=== PATIENT | male | born 1940 | race Two or more races ===

== ENCOUNTER 2017-10-02 12:59 | Outpatient (CLI) | payer MEDICARE ==
[2017-10-02] MEDS ORDERED: ASPIR 8181 MG ORAL (13:46)
--- NOTE | 2017-10-02 13:49 | GI Initial Consult Note ---
Edith Arguello N.P. 10/02/17 1349: History of Present Illness General Date patient seen: Oct 02, 2017 Time patient seen: 13:43 Referring physician: PUMA Reason for Consultation: MUCOSECTOMY Present Illness HPI 77 year old male referred by Dr. Crouch for mucosal resection. Patient recently had colonoscopy on 09/14/17 where a 3-4 cm sessile polyp was found. Biopsy reports did not show any dysplasia or metaplasia. He presents today with no general GI complaints. Denies any past medical history. Denies any unintentional weight loss or changes in dietary habits. No signs of abuse or neglect. Patient is not fall risk. Home Meds Reported Medications Aspirin* (ASPIR 81*) 81 Mg Tablet., 81 MG ORAL DAILY, TAB 10/02/17 Med list reviewed/reconciled: Yes Allergies: Coded Allergies: No Known Allergies (Unverified , 10/02/17) Patient History History Provided By: Patient PMH Narrative Denies any past medical history. Denies any past surgical history. Pertinent Family History: none Social History Narrative coffee daily Review of Systems All Other Systems: negative except mentioned in HPI Physical Exam T 156/83 T 97.6 P 60 98 RA Sp02 EP Interpretation: reviewed, normal General Appearance: well appearing, no apparent distress, alert Head: normocephalic EENT: PERRL/EOMI, normal ENT inspection Neck: supple Respiratory: normal breath sounds, no respiratory distress Cardiovascular: normal rate Gastrointestinal: normal inspection, non tender, soft, normal bowel sounds, non -distended Rectal: deferred Genitourinary: deferred Musculoskeletal: normal inspection, back normal Neurologic: normal inspection, alert, oriented x3, responsive Psychiatric: normal inspection, judgement/insight normal, memory normal Skin: normal inspection, normal color, no rash, warm/dry, palpation normal, well hydrated Lymphatic: normal inspection, no adenopathy GI: Plan Problems: (1) HTN (hypertension) (2) Colonoscopy planned Plan Colonoscopy for mucosectomy scheduled on 10/09/17. - CLD & (Nulytely/Suprep/Movi-Prep) prep instructions given and acknowledged by patient. - NPO @ NE day prior procedure explained. refer to PCP to management HTN Seen with Dr. Mane. Thank you for this patient referral. FRAN MANE 10/03/17 1139: History of Present Illness Present Illness Home Meds Reported Medications Aspirin* (ASPIR 81*) 81 Mg Tablet., 81 MG ORAL DAILY, TAB 10/02/17 Allergies: Coded Allergies: No Known Allergies (Unverified , 10/02/17) GI: Plan Plan The patient was seen and examined at bedside and all new and available data was reviewed in the patients chart. I agree with the above findings, impression and plan. (Patient seen earlier today. Signature stamp does not reflect patient encounter time.). - MD Saundra [facility]Little [facility] Kevon Sol Oct 02, 2017 13:49 FRAN MANE Oct 03, 2017 11:39
[2017-10-02 14:20] VITALS: BP 156/83
== END 2017-10-02 13:50 | disposition home or self-care (01) ==
LOC: PAN 12:59
DX: I10 Essential (primary) hypertension (principal); Z86.010 Personal history of colon polyps; Z79.82 Long term (current) use of aspirin
CPT/HCPCS: 99201

== ENCOUNTER 2017-10-09 07:48 | Day surgery (SDC) | payer MEDICARE ==
[2017-10-09] VITALS (10 sets, daily range): BP systolic 137–178; BP diastolic 70–80
[~2017-10-09] VITALS: Ht 175.3 cm; Wt 72.6 kg
[~2017-10-09 07:48] MED LIST: ASPIR 8181 MG ORAL
[2017-10-09] MEDS ORDERED: VITAMIN C500 M1 ORAL (08:25)
[2017-10-09] MEDS ORDERED: VITAMIN E400 UNI6 PO (08:25)
--- NOTE | 2017-10-09 09:10 | Anethesia Preoperative Eval ---
Anesthesia Pre-op PMH/ROS General Date of Evaluation: Oct 09, 2017 Time of Evaluation: 09:08 Anesthesiologist: bethany ASA Score: ASA 3 Mallampati Score Class I : Soft palate, uvula, fauces, pillars visible Class II: Soft palate, uvula, fauces visible Class III: Soft palate, base of uvula visible Class IV: Only hard plate visible Mallampati Classification: Class II Surgeon: dianelys Diagnosis: colon polyps Surgical Procedure: colonoscopy Social History: smoking - nonsmoker Family History: no anesthesia problems Allergies: Coded Allergies: No Known Allergies (Unverified , 10/02/17) Medications: see eMAR Past Medical History Cardiovascular: Reports: HTN HEENT: Reports: cataract (L), cataract (R) Musculoskeletal/Integumentary: Reports: other - back pain Anesthesia Pre-op Phys. Exam Physician Exam Last Vital Signs Date Time Temp Pulse Resp B/P (MAP) Pulse Ox O2 Delivery O2 Flow Rate FiO2 10/09/17 08:26 97.7 61 20 153/75 98 Room Air Constitutional: NAD Neurologic: CN 2-12 intact Cardiovascular: RRR Respiratory: CTA Gastrointestinal: S/NT/ND Airway Exam Mallampati Score: Class II MO: full Neck: supple TMD: 2fb ROM: limited Anesthesia Pre-op A/P Studies Pre-op Studies: EKG - nsstwa, nsr Risk Assessment & Plan Assessment: asa3 Plan: mac Status Change Before Surgery: No Pre-Antibiotics Drug: MARCIO Tran Oct 09, 2017 09:10
[2017-10-09] MEDS ORDERED: Lidocaine 1% MPF 10mg/ml 5ml ONE (09:30)
[2017-10-09] MEDS ORDERED: Propofol 200mg/20ml IV ONE (09:30)
--- NOTE | 2017-10-09 09:38 | Pre-Procedure Note/Attestation ---
Pre-Procedure Note/Attestation Complete Prior to Procedure Planned Procedure: not applicable Procedure Narrative: colonoscopy Indications for Procedure Pre-Operative Diagnosis: colon polyps Attestation I attest that I discussed the nature of the procedure; its benefits; risks and complications; and alternatives (and the risks and benefits of such alternatives ), prior to the procedure, with the patient (or the patient's legal retail sales representative). I attest that, if there was a reasonable possibility of needing a blood transfusion, the patient (or the patient's legal retail sales representative) was given the [facility] standardized written summary, pursuant to the [place] Blood Safety Act ([place] Health and Safety Code # 1645, as amended). I attest that I re-evaluated the patient just prior to the surgery and that there has been no change in the patient's H&P, except as documented below: FRAN MNAE Oct 09, 2017 09:38
--- NOTE | 2017-10-09 09:39 | Short Stay Surgery H&P ---
History of Present Illness History of Present Illness Chief Complaint see recent consult HPI Tae Salamanca is a 77 year old male who was admitted on for Colon Polyps Patient History Allergies: Coded Allergies: No Known Allergies (Unverified , 10/02/17) PAST MEDICAL HISTORY: Past Surgeries: Social History: Medication History Scheduled Ascorbic Acid* (Vitamin C*), 1,000 MG ORAL DAILY, (Reported) Aspirin* (Aspir 81*), 81 MG ORAL DAILY, (Reported) Vitamin E (Vitamin E), 400 UNIT PO DA, (Reported) Physical Exam Vital Signs Last Vital Signs Date Time Temp Pulse Resp B/P (MAP) Pulse Ox O2 Delivery O2 Flow Rate FiO2 10/09/17 08:26 97.7 61 20 153/75 98 Room Air Plan Attestation Are the patient's medical conditions optimized for surgery? FRAN MANE Oct 09, 2017 09:39
--- NOTE | 2017-10-09 10:09 | Endoscopy Procedure Note ---
Endoscopy Procedure Note Indication for Procedure: colon polyp Procedures Performed: colonoscopy Operative Findings/Diagnosis: same Specimen: yes Pt Tolerated Procedure Well: Yes Estimated Blood Loss: none Anesthesiologist: yan Anesthesia: MAC Implant(s) used?: No 50 yrs or older w/o bx or poly: No 10yrs. F/U not recommended: Yes If not recommended, why?: Above average risk 10 yrs. F/U needed: Yes 18 years or older w/prev. colo: Yes Med reason:<3 yrs.: Piecemeal removal-Adenoma FRAN MANE Oct 09, 2017 10:09
[2017-10-09] MEDS ORDERED: fentaNYL 100 mcg/2 mL IV PRN (10:15)
[2017-10-09] MEDS ORDERED: Midazolam 2mg/2ml Inj IVP PRN (10:15)
[2017-10-09] MEDS ORDERED: Atropine Inj 1mg/10ml Syr IV PRN (10:15)
[2017-10-09] MEDS ORDERED: DiphenhydrAMINE 50mg/ml Inj IVP PRN (10:15)
--- NOTE | 2017-10-09 10:47 | Immediate Post-Op Evaluation ---
Immediate Post-Op Evalulation Immediate Post-Op Evalulation Procedure: colonoscopy Date of Evaluation: Oct 09, 2017 Time of Evaluation: 10:25 IV Fluids: 400ml 0.9ns Blood Products: none Estimated Blood Loss: negligible Blood Pressure Systolic: 139 Blood Pressure Diastolic: 80 Pulse Rate: 49 Respiratory Rate: 18 O2 Sat by Pulse Oximetry: 99 Temperature (Fahrenheit): 97.3 Pain Score (1-10): 0 Nausea: No Vomiting: No Complications none Patient Status: awake, reacts, patent Hydration Status: adequate Drug: MARCIO Tran Oct 09, 2017 10:47
--- NOTE | 2017-10-09 10:52 | 48 Hour Post Anesthesia Eval ---
Post Anesthesia Evaluation Procedure: colonoscopy Date of Evaluation: Oct 09, 2017 Time of Evaluation: 10:30 Blood Pressure Systolic: 140 0: 70 Pulse Rate: 58 Respiratory Rate: 18 Temperature (Fahrenheit): 97.3 O2 Sat by Pulse Oximetry: 100 Airway: patent Nausea: No Vomiting: No Pain Intensity: 0 Hydration Status: adequate Cardiopulmonary Status: stable Mental Status/LOC: patient returned to baseline Post-Anesthesia Complications: none Follow-up care needed: N/A MARCIO FOFANA Oct 09, 2017 10:52
--- NOTE | 2017-10-09 15:45 | Procedure Note ---
DATE OF PROCEDURE: 10/09/2017 SURGEON: Go Arceo M.D. PROCEDURE: Colonoscopy with snare polypectomy. ANESTHESIOLOGIST: Bekah Brush M.D. INSTRUMENT: Olympus adult flexible colonoscope. INDICATION: History of colonic polyp, was referred by another gastrointestinal doctor given the polyp was large. REASON FOR PROCEDURE: The procedure, risks, benefits, and possible consequences, including hemorrhage, aspiration, perforation and infection, and alternative treatments, were explained to the patient/legal guardian by Dr. Go Arceo and the patient/legal guardian understood and accepted these risks. PROCEDURE: After informed consent was obtained and the patient was adequately sedated, first rectal exam was performed, which was positive for internal hemorrhoids. Then, the scope was advanced from the rectum into the cecum, documented by appendiceal orifice, ileocecal valve, and upper quadrant palpation. Quality of prep was very good. The patient has a sessile polyp, it roughly measured about 1.3 cm next to the ileocecal valve, which was removed with the snare polypectomy technique. Post polypectomy, there was minimum bleeding. We used two clips to stop the bleeding, which was successful. The rest of the exam was within normal limits. Retroflexion of rectum showed evidence of large internal hemorrhoids. SUMMARY FINDINGS: 1. One polyp about 1.3 cm sessile in the proximal ascending colon. 2. Ileocecal valve was removed with the snare polypectomy technique and two clips were placed after the polyp was removed. 3. Internal hemorrhoids. RECOMMENDATIONS: Follow biopsy results and treat accordingly. The patient to follow up with Dr. Ocampo, his own primary gastrointestinal doctor for future colonoscopy. I want to thank Dr. Ocampo for this kind referral. Go Arceo M.D. DR: MUKUL JOB#: [id number] CC: Dr. Ocampo
--- NOTE | 2017-10-09 18:28 | Cardiology Report ---
APPROVED REPORT EKG Measurement Heart [id number] Normal sinus rhythm Nonspecific ST abnormality Abnormal ECG
== END 2017-10-09 12:05 | disposition home or self-care (01) ==
LOC: GAS 07:48
DX: D12.2 Benign neoplasm of ascending colon (principal); K64.8 Other hemorrhoids; Z79.82 Long term (current) use of aspirin; I10 Essential (primary) hypertension
CPT/HCPCS: 45380; 93005; J2704; 94003; 94150

== ENCOUNTER 2017-10-19 12:50 | Outpatient (CLI) | payer MEDICARE ==
[~2017-10-19 12:50] MED LIST changes: +VITAMIN C500 M1 ORAL; +VITAMIN E400 UNI6 PO
[2017-10-19 13:08] VITALS: BP 130/72
--- NOTE | 2017-10-19 13:24 | GI Progress Note ---
Assessment/Plan Problems: (1) Colonic polyp ICD Codes: K63.5 - Polyp of colon SNOMED: 73690264 (2) HTN (hypertension) ICD Codes: I10 - Essential (primary) hypertension SNOMED: 22262351 Status: stable Status Narrative Seen with Dr. Arceo. Assessment/Plan colonoscopy SUMMARY FINDINGS reviewed with patient: 1. One polyp about 1.3 cm sessile in the proximal ascending colon. 2. Ileocecal valve was removed with the snare polypectomy technique and two clips were placed after the polyp was removed. 3. Internal hemorrhoids. RECOMMENDATIONS: Follow biopsy results and treat accordingly. >> unremarkable repeat colonoscopy x 3 years The patient to follow up with Dr. Ocampo, his own primary gastrointestinal doctor for future colonoscopy. Subjective Gastrointestinal/Abdominal: Reports: no symptoms Subjective Hx of back pain has subsided ever since colonoscopy. Objective Last 24 Hour Vital Signs Date Time Temp Pulse Resp B/P (MAP) Pulse Ox O2 Delivery O2 Flow Rate FiO2 10/19/17 13:08 97.7 61 16 130/72 98 General Appearance: WD/WN, no apparent distress, alert Cardiovascular: normal rate Respiratory/Chest: normal breath sounds, no respiratory distress Abdominal Exam: normal bowel sounds, non tender, soft Extremities: normal range of motion, non-tender Edith Arguello N.P. Oct 19, 2017 13:24
== END 2017-10-19 13:45 | disposition home or self-care (01) ==
LOC: PAN 12:50
DX: K63.5 Polyp of colon (principal); I10 Essential (primary) hypertension; K64.9 Unspecified hemorrhoids
CPT/HCPCS: 99212

== ENCOUNTER 2019-06-12 08:09 | Day surgery (SDC) | payer MEDICARE ==
[~2019-06-12] VITALS: Ht 177.8 cm; Wt 69.9 kg
[2019-06-12] VITALS (7 sets, daily range): BP systolic 126–146; BP diastolic 68–76
[2019-06-12] MEDS ORDERED: Propofol 200mg/20ml IV ONE (08:30)
[2019-06-12] MEDS ORDERED: Lidocaine 1% MPF 10mg/ml 5ml ONE (08:30)
[2019-06-12] MEDS ORDERED: Atropine Inj 1mg/10ml Syr IV PRN (08:45)
[2019-06-12] MEDS ORDERED: fentaNYL 100 mcg/2 mL IV PRN (08:45)
[2019-06-12] MEDS ORDERED: Midazolam 2mg/2ml Inj IVP PRN (08:45)
[2019-06-12] MEDS ORDERED: DiphenhydrAMINE 50mg/ml Inj IVP PRN (08:45)
--- NOTE | 2019-06-12 08:46 | Anethesia Preoperative Eval ---
Anesthesia Pre-op PMH/ROS General Date of Evaluation: Jun 12, 2019 Time of Evaluation: 08:44 Anesthesiologist: bethany ASA Score: ASA 4 Mallampati Score Class I : Soft palate, uvula, fauces, pillars visible Class II: Soft palate, uvula, fauces visible Class III: Soft palate, base of uvula visible Class IV: Only hard plate visible Mallampati Classification: Class II Surgeon: dianelys Diagnosis: abdominal pain Surgical Procedure: colonoscopy Anesthesia History: none Social History: smoking - nonsmoker Family History: no anesthesia problems Allergies: Coded Allergies: No Known Allergies (Unverified , 10/02/17) Medications: see eMAR Patient NPO?: Yes Past Medical History Cardiovascular: Reports: HTN Gastrointestinal/Genitourinary: Reports: other - colon polyps HEENT: Reports: cataract (L), cataract (R) Anesthesia Pre-op Phys. Exam Physician Exam Last Vital Signs Date Time Temp Pulse Resp B/P (MAP) Pulse Ox O2 Delivery O2 Flow Rate FiO2 06/12/19 08:42 Room Air 06/12/19 08:36 97.5 60 18 146/75 100 Constitutional: NAD Neurologic: CN 2-12 intact Cardiovascular: RRR Respiratory: CTA Gastrointestinal: S/NT/ND Airway Exam Mallampati Score: Class II MO: limited Neck: flexible TMD: 2fb ROM: limited Anesthesia Pre-op A/P Studies Pre-op Studies: EKG - sinus bradycardia Risk Assessment & Plan Assessment: asa4 Plan: mac Status Change Before Surgery: No Pre-Antibiotics Drug: Bekah Staley MD Jun 12, 2019 08:46
--- NOTE | 2019-06-12 09:02 | Short Stay Surgery H&P ---
History of Present Illness History of Present Illness Chief Complaint see recent office note HPI Tae Salamanca is a 79 year old male who was admitted on for Abdominal Pain Patient History Allergies: Coded Allergies: No Known Allergies (Unverified , 10/02/17) Medication History Scheduled Ascorbic Acid* (Vitamin C*), 1,000 MG ORAL DAILY, (Reported) Aspirin* (Aspir 81*), 81 MG ORAL DAILY, (Reported) Vitamin E (Vitamin E), 400 UNIT PO DA, (Reported) Physical Exam Vital Signs Last Vital Signs Date Time Temp Pulse Resp B/P (MAP) Pulse Ox O2 Delivery O2 Flow Rate FiO2 06/12/19 08:42 Room Air 06/12/19 08:36 97.5 60 18 146/75 100 Plan Attestation Are the patient's medical conditions optimized for surgery? Go Arceo MD Jun 12, 2019 09:02
--- NOTE | 2019-06-12 09:02 | Pre-Procedure Note/Attestation ---
Pre-Procedure Note/Attestation Complete Prior to Procedure Planned Procedure: not applicable Procedure Narrative: colonoscopy Indications for Procedure Pre-Operative Diagnosis: screening Attestation I attest that I discussed the nature of the procedure; its benefits; risks and complications; and alternatives (and the risks and benefits of such alternatives ), prior to the procedure, with the patient (or the patient's legal financial service representative). I attest that, if there was a reasonable possibility of needing a blood transfusion, the patient (or the patient's legal financial service representative) was given the [facility] standardized written summary, pursuant to the [place] Blood Safety Act ([place] Health and Safety Code # 1645, as amended). I attest that I re-evaluated the patient just prior to the surgery and that there has been no change in the patient's H&P, except as documented below: Go Arceo MD Jun 12, 2019 09:02
--- NOTE | 2019-06-12 09:21 | Endoscopy Procedure Note ---
Endoscopy Procedure Note General Indication for Procedure: screening Procedures Performed: colonoscopy Operative Findings/Diagnosis: hemorrhoids Specimen: none Pt Tolerated Procedure Well: Yes Estimated Blood Loss: none Anesthesia Anesthesiologist: bethany Anesthesia: MAC Inserted Devices Implant(s) used?: No Quality Quality of Bowel Preparation: Good Did scope reach the cecum?: Yes Was there any complications?: No GI Core Measures 50 yrs or older w/o bx or poly: No 10yrs. F/U recommended: Yes If not recommended, why?: Above average risk 18 years or older w/prev. colo: No Go Arceo MD Jun 12, 2019 09:21
--- NOTE | 2019-06-12 09:42 | Immediate Post-Op Evaluation ---
Immediate Post-Op Evalulation Immediate Post-Op Evalulation Procedure: colonoscopy Date of Evaluation: Jun 12, 2019 Time of Evaluation: 09:41 IV Fluids: 400ml 0.9ns Blood Products: none Estimated Blood Loss: negligible Blood Pressure Systolic: 126 Blood Pressure Diastolic: 73 Pulse Rate: 53 Respiratory Rate: 18 O2 Sat by Pulse Oximetry: 100 Temperature (Fahrenheit): 97.0 Pain Score (1-10): 0 Nausea: No Vomiting: No Complications none Patient Status: awake, reacts, patent Hydration Status: adequate Drug: Bekah Staley MD Jun 12, 2019 09:42
--- NOTE | 2019-06-12 09:44 | 48 Hour Post Anesthesia Eval ---
Post Anesthesia Evaluation Procedure: colonoscopy Date of Evaluation: Jun 12, 2019 Time of Evaluation: 09:43 Blood Pressure Systolic: 130 0: 73 Pulse Rate: 56 Respiratory Rate: 18 Temperature (Fahrenheit): 97.0 O2 Sat by Pulse Oximetry: 100 Airway: patent Nausea: No Vomiting: No Pain Intensity: 0 Hydration Status: adequate Cardiopulmonary Status: stable Mental Status/LOC: patient returned to baseline Post-Anesthesia Complications: none Follow-up care needed: N/A Bekah Ch MD Jun 12, 2019 09:44
--- NOTE | 2019-06-12 16:30 | Procedure Note ---
DATE OF PROCEDURE: 06/12/2019 SURGEON: Go Arceo M.D. PROCEDURE: Colonoscopy. ANESTHESIA: Per Dr. Brush. INSTRUMENT: Olympus adult flexible colonoscope. INDICATION: Screening colonoscopy. REASON FOR PROCEDURE: The procedure, risks, benefits, and possible consequences, including hemorrhage, aspiration, perforation and infection, and alternative treatments, were explained to the patient/legal guardian by Dr. Go Arceo and the patient/legal guardian understood and accepted these risks. PROCEDURE IN DETAIL: After informed consent was obtained and the patient was adequately sedated, first rectal exam was performed, which showed positive for internal hemorrhoids. Then, the scope was advanced from the rectum into the cecum documented by appendiceal orifice, ileocecal valve, and right upper quadrant palpation. Quality of prep was good. The patient has normal colonoscopy examination. Retroflexion of rectum showed evidence of medium-sized internal hemorrhoids. The patient tolerated the procedure very well without any complication. SUMMARY OF FINDINGS: Internal hemorrhoid, otherwise normal colonoscopy examination. RECOMMENDATIONS: Treat for hemorrhoid. If become symptomatic, recommend repeat colonoscopy in 5 years. Go Arceo M.D. DR: ZARINA JOB#: [id number] CC:
== END 2019-06-12 10:30 | disposition home or self-care (01) ==
LOC: GAS 08:09
DX: Z12.11 Encounter for screening for malignant neoplasm of colon (principal); K64.8 Other hemorrhoids; Z79.82 Long term (current) use of aspirin; Z79.899 Other long term (current) drug therapy; R10.9 Unspecified abdominal pain; I10 Essential (primary) hypertension; Z86.010 Personal history of colon polyps; R00.1 Bradycardia, unspecified
CPT/HCPCS: 93005; G0121; J2704; 94003; 94150